=== PATIENT | male | born 1945 | race Caucasian/White ===

== ENCOUNTER 2024-04-28 00:57 | Emergency (ER) | payer SELFPAY ==
[~2024-04-28] VITALS: Ht 170.2 cm; Wt 91.7 kg
[2024-04-28 01:03] VITALS: BP 138/79; PULSE 71; RESP 18; TEMP 95.1; O2SAT 98
[2024-04-28] MEDS: MORPHINE SULFATE 4 MG/ML SYR IM ONE (01:59)
[2024-04-28] MEDS: KETOROLAC 60 MG/2 ML VIAL IM ONE (03:14)
[2024-04-28] MEDS ORDERED: TRAM50TA3 PO (03:23)
[2024-04-28 03:29] VITALS: BP 121/80; PULSE 75; RESP 18; TEMP 97.8; O2SAT 98
== END 2024-04-28 03:29 | disposition home or self-care (01) ==
LOC: MED 00:57
DX: M54.50 Low back pain, unspecified (principal); G31.89 Other specified degenerative diseases of nervous system; I10 Essential (primary) hypertension; Z79.899 Other long term (current) drug therapy
CPT/HCPCS: 72131; 96372; 99285; J1885; J2270